=== PATIENT | female | born 1975 | race Caucasian/White ===

== ENCOUNTER 2019-02-03 10:38 | Outpatient (CLI) | payer OTHER ==
[~2019-02-03 10:38] MED LIST: CODE1TAB37 PO; FOLIC ACID1 MG PO; GLYCOTROL CAPS1 EACH; HUMIRA40 MG/0.1 IM; INTEGRA CAPSUL1 EACH PO; Mylicon 125MG PO; NEURIN SL; POLY119PG PO; RAYOS5 MG PO; STIMATE NS; VIT D PO; ZANTAC150 M3 PO; [UNRECOGNIZED DRUG - OTHER]
== END 2019-02-03 10:49 | disposition home or self-care (01) ==
LOC: RAD 10:38
DX: S43.005D Unspecified dislocation of left shoulder joint, subsequent encounter (principal)

== ENCOUNTER 2019-02-03 13:44 | Outpatient (CLI) | payer OTHER | END 2019-02-03 13:48 | disposition home or self-care (01) | LOC: RAD 13:44 | DX: M54.2 Cervicalgia (principal) ==

== ENCOUNTER → 2020-11-16 08:43 | Outpatient (CLI) | payer OTHER | END | disposition home or self-care (01) | LOC: LAB 08:43 | PROVIDERS: ATTEND Internal Medicine Hematology & Oncology | DX: D68.0 Von Willebrand disease (principal); D50.0 Iron deficiency anemia secondary to blood loss (chronic); M06.9 Rheumatoid arthritis, unspecified; E16.2 Hypoglycemia, unspecified; B02.33 Zoster keratitis ==